=== PATIENT | female | born 1950 | race Caucasian/White ===

== ENCOUNTER 2021-03-02 09:35 | Outpatient (CLI) | payer MEDICARE, SELFPAY ==
--- NOTE | 2021-03-02 09:47 | XRR_ITS ---
PROCEDURE INFORMATION: Exam: XR Thoracic Spine Exam date and time: 03/02/2021 9:47 AM Age: 70 years old Clinical indication: Pain and injury or trauma; Blunt trauma (contusions or hematomas); Pain in thoracic spine; Injury details: Fall, and now has back pain; Prior surgery; Surgery type: Tumor removed; Additional info: Thoracic back pain TECHNIQUE: Imaging protocol: XR of the thoracic spine. Views: 3 views. COMPARISON: MRI Cervical Spine w/o* [id number] 06/25/2019 2:43 PM FINDINGS: Bones/joints: Alignment is normal. Impression.Mild compression fracture involving the anterior column of T7 and T6. Soft tissues: Unremarkable. XR/XR thoracic spine 2V [id number] IMPRESSION: .Mild compression fracture involving the anterior column of T7 and T6.
== END 2021-03-02 09:36 | disposition home or self-care (01) ==
PROVIDERS: Visit Provider Clinical Nurse Specialist Adult Health
DX: M54.6 Pain in thoracic spine (principal); S22.059A Unspecified fracture of T5-T6 vertebra, initial encounter for closed fracture; S22.069A Unspecified fracture of T7-T8 vertebra, initial encounter for closed fracture; X58.XXXA Exposure to other specified factors, initial encounter
CPT/HCPCS: 72070

== ENCOUNTER 2022-02-28 14:24 | Outpatient (CLI) | payer MEDICARE, SELFPAY ==
--- NOTE | 2022-02-28 15:05 | XR_ITS ---
WS: [id number] XR shoulder RT min 2V* [id number] REASON FOR EXAM: PAIN IN R SHOULDER FINDINGS: No fracture or focal bone lesion. Moderately severe narrowing of the acromioclavicular joint with subchondral sclerosis and marginal os teophytes. Glenohumeral joint is intact and relatively well-preserved. Mild subchondral sclerosis with small mar ginal osteophytes in the glenoid. XR/XR shoulder RT min 2V* [id number] IMPRESSION: Moderate osteoarthritis in the right joint with mild osteoarthritis in the farrukh ohumeral joint.
== END 2022-02-28 14:25 | disposition home or self-care (01) ==
PROVIDERS: PCP Clinical Nurse Specialist Adult Health; Visit Provider Clinical Nurse Specialist Adult Health
DX: M25.511 Pain in right shoulder (principal); M19.011 Primary osteoarthritis, right shoulder
CPT/HCPCS: 73030

== ENCOUNTER → 2022-03-30 08:47 | Outpatient (BNVA) | payer MEDICARE, SELFPAY | PROVIDERS: PCP Clinical Nurse Specialist Adult Health; Referring Provider Clinical Nurse Specialist Adult Health; Visit Provider Orthopaedic Surgery | DX: M47.812 Spondylosis without myelopathy or radiculopathy, cervical region (principal); M67.911 Unspecified disorder of synovium and tendon, right shoulder | CPT/HCPCS: 99204 ==

== ENCOUNTER 2022-11-02 12:45 | Outpatient (CLI) | payer MEDICARE, SELFPAY ==
--- NOTE | 2022-11-02 13:00 | XR_ITS ---
WS: [id number] SCREENING DEXA SCAN [employer] CLINICAL INFORMATION: osteoporosis COMPARISON: None. FINDINGS: The L1-L4 bone mineral density measures 0.796 g/cm2. This corresponds to a T score score of -3.2 and Z score of -1.1. Left femoral neck bone mineral density measures 0.685 g/cm2. This corresponds to a T score of -2.6 an d Z score of -0.8. Right femoral neck bone mineral density measures 0.671 g/cm2. This corresponds to a T score -2.7of an d Z score of -0.9. Mean femoral neck bone mineral density measures 0.678 g/cm2. This corresponds to a T score of -2.6 an d Z score of -0.8. XR/XR DEXA axial skeleton* [id number] IMPRESSION: Osteoporosis lumbar spine. Osteoporosis femoral necks. Patient's FRAX calculated 10 year probability for major osteoporotic fracture i s 27.8 % and osteoporotic hip fracture is 13.1%.
== END 2022-11-02 12:46 | disposition home or self-care (01) ==
LOC: RAD 12:51
PROVIDERS: PCP Clinical Nurse Specialist Adult Health; Visit Provider Clinical Nurse Specialist Adult Health
DX: M81.0 Age-related osteoporosis without current pathological fracture (principal)
CPT/HCPCS: 77080

== ENCOUNTER → 2022-11-04 08:59 | Outpatient (BNVA) | payer MEDICARE, SELFPAY | PROVIDERS: PCP Clinical Nurse Specialist Adult Health; Visit Provider Podiatrist Foot & Ankle Surgery | DX: M19.071 Primary osteoarthritis, right ankle and foot (principal) | CPT/HCPCS: 73610; 73630; 99203 ==

== ENCOUNTER → 2023-11-13 13:54 | Outpatient (BNVA) | payer MEDICARE, SELFPAY | PROVIDERS: PCP Clinical Nurse Specialist Adult Health; Visit Provider Clinical Nurse Specialist Adult Health | DX: M19.071 Primary osteoarthritis, right ankle and foot (principal); K21.9 Gastro-esophageal reflux disease without esophagitis; F41.1 Generalized anxiety disorder; M81.0 Age-related osteoporosis without current pathological fracture | CPT/HCPCS: 80053; 82306; 85025 ==

== ENCOUNTER → 2024-08-19 13:46 | Outpatient (BNVA) | payer MEDICARE, SELFPAY | DX: M81.0 Age-related osteoporosis without current pathological fracture (principal) | CPT/HCPCS: 80053; 82306 ==

== ENCOUNTER 2024-12-24 10:45 | Outpatient (CLI) | payer MEDICARE, SELFPAY ==
--- NOTE | 2024-12-24 11:00 | CT_ITS ---
WS: [id number] CT ABDOMEN WITHOUT CONTRAST HISTORY: cirrhosis Contiguous single phase 5 mm axial imaging performed to the abdomen. Oral contrast has not been provided. Coronal and sagittal reformats are submitted. All CT scans at [facility] use at least one of these dose optimization techniques: automated exposure control; mA and/or kV adjustment per patient size (includes targeted exams where dose is matched to clinical indication); or iterative reconstruction. IV CONTRAST: Omnipaque 350; 100 mL IV. Oral contrast: No DLP: 144.73 mGy.cm COMPARISON: None available. Lower thorax: 3.8 mm noncalcified nodule at the RIGHT lung base, subpleural. Heart is normal size. Small hiatal hernia. Liver/biliary system: Cirrhotic liver. Margins of the liver are markedly irregular. Gallbladder: Prior cholecystectomy. Pancreas: Normal size pancreas and pancreatic duct. No adjacent inflammation. Spleen: Spleen is top normal size at 12.4 cm. Adrenal glands: Normal. Right kidney: Normal. Left kidney: Normal. Aorta: Mild atherosclerosis with no aneurysm. Lymphadenopathy: None. Free fluid: Small amount of ascites surrounding the liver and spleen. Ascites extends into the lesser curvature of the stomach. Fluid extends along the paracolic gutters. GI tract: Small hiatal hernia. Distal esophageal varices. Gastric varices and splenic varices. Extensive postoperative surgical clips are noted within the mid and RIGHT abdomen. No GI tract obstruction. Only a small portion of the GI tract is included. Only the abdomen CT was requested. There is mild patulous dilatation of the ascending colon. Very minimal soft tissue thickening of the stomach antrum. Abdominal wall: Midline abdominal surgical site. Very subtle changes of omental thickening noted along the anterior peritoneal cavity. Visualized osseous structures: Unremarkable. CT/CT abdomen wo con [id number] IMPRESSION: 1. Small amount of ascites surrounding the liver and spleen and extending hay g the paracolic gutters. 2. Cirrhotic liver. 3. Prior cholecystectomy. 4. Numerous surgical clips within the abdomen. The exact type of surgery is no t been provided. May be GI tract. 5. Esophageal and gastric varices. 6. Very mild soft tissue and omental thickening along the peritoneal cavity se en in the lower abdomen. This may be early carcinomatosis or fat necrosis from prior surgery. 7. Pelvis was not included as only CT abdomen was requested without IV contras t. 8. Subpleural RIGHT lower lobe 3.8 mm noncalcified nodule. Recommend follow-up chest CT in 3 months. 9. Recommendation: Consider additional evaluation of the abdomen and pelvis wi th IV and oral contrast. The omental changes need to be evaluated for Pap the e tiology. Colonoscopy may also be of benefit. Upper endoscopy may be necessary a fter evaluation of the mild stomach antral thickening.
== END 2024-12-24 10:46 | disposition home or self-care (01) ==
PROVIDERS: PCP Family Medicine; Visit Provider Family Medicine
DX: K70.30 Alcoholic cirrhosis of liver without ascites (principal); R18.8 Other ascites; Z90.49 Acquired absence of other specified parts of digestive tract; I85.00 Esophageal varices without bleeding; I86.4 Gastric varices; R93.5 Abnormal findings on diagnostic imaging of other abdominal regions, including retroperitoneum; R91.1 Solitary pulmonary nodule; K44.9 Diaphragmatic hernia without obstruction or gangrene; R93.2 Abnormal findings on diagnostic imaging of liver and biliary tract; I70.0 Atherosclerosis of aorta; I86.8 Varicose veins of other specified sites; R93.89 Abnormal findings on diagnostic imaging of other specified body structures
CPT/HCPCS: 74150

== ENCOUNTER → 2025-01-06 11:48 | Outpatient (BNVA) | payer MEDICARE, SELFPAY | PROVIDERS: PCP Family Medicine; Visit Provider Family Medicine | DX: Z00.00 Encounter for general adult medical examination without abnormal findings (principal); I10 Essential (primary) hypertension; E55.9 Vitamin D deficiency, unspecified; Z13.6 Encounter for screening for cardiovascular disorders; Z11.59 Encounter for screening for other viral diseases | CPT/HCPCS: 80061; 86803 ==

== ENCOUNTER 2025-01-09 14:33 | Outpatient (CLI) | payer MEDICARE, SELFPAY ==
--- NOTE | 2025-01-09 15:00 | XR_ITS ---
WS: [id number] DEXA (DUAL ENERGY X-RAY ABSORPTIOMETRY) Bone mineral density was performed using a [employer] machine. HISTORY: osteoporosis COMPARISON: 11/02/2022 RIGHT forearm BMD: 0.600. T score: -3.2 Z score: -1.1 Total hip BMD: Left: 0.693 g/cm2. T score: -2.5 Z score: -0.6 Right: 0.694 g/cm2. T score: -2.5 Z score: -0.6 10 year probability of a major osteoporotic fracture is 28.8%. Compared to the prior study from 11/02/2022. Bilateral hips bone mineral density has increased by 2.2%. XR/XR DEXA axial skeleton* [id number] IMPRESSION: OSTEOPOROSIS based upon the WHO classification for females. Significant increase in bone mineral density within the hips since the prior .
== END 2025-01-09 14:34 | disposition home or self-care (01) ==
PROVIDERS: PCP Family Medicine; Visit Provider Family Medicine
DX: M81.0 Age-related osteoporosis without current pathological fracture (principal)
CPT/HCPCS: 77080

== ENCOUNTER → 2025-01-23 14:00 | Outpatient (BNVA) | payer MEDICARE, SELFPAY | PROVIDERS: PCP Family Medicine; Referring Provider Family Medicine; Visit Provider Student in an Organized Health Care Education/Training Program | DX: Z12.11 Encounter for screening for malignant neoplasm of colon (principal) | CPT/HCPCS: 99024; 99204 ==

== ENCOUNTER → 2025-02-05 10:44 | Outpatient (BNVA) | payer MEDICARE, SELFPAY | PROVIDERS: PCP Family Medicine; Visit Provider Nurse Practitioner Family | DX: L73.9 Follicular disorder, unspecified (principal); L57.8 Other skin changes due to chronic exposure to nonionizing radiation; L81.4 Other melanin hyperpigmentation; D22.4 Melanocytic nevi of scalp and neck | CPT/HCPCS: 99203 ==

== ENCOUNTER 2025-02-11 10:34 | Day surgery (SDC) | payer MEDICARE, SELFPAY ==
[2025-02-11 10:49] VITALS: BP 151/90; PULSE 89; RESP 18; TEMP 36.5; O2SAT 97; BMI 21.7
--- NOTE | 2025-02-11 10:53 | W.PM.OPSUD ---
Surgery/Procedure H&P Update DATE OF PROCEDURE: February 11, 2025 DATE H&P PERFORMED: 01/23/25 H&P UPDATE INFORMATION: I have reviewed H&P completed within last 30 days, I have examined patient prior to procedure and No changes to prior documentation PLANNED PROCEDURE: Operation Date: 02/11/25 11:45 Proposed Procedures p Colonoscopy 23098 G0121 Z12.11(Not Applicable) - Ilir Church MD
--- NOTE | 2025-02-11 11:00 | ANES.PREANE2 ---
Pre-Anesthetic Assessment Height/Weight: Height 1.55 m Weight 52.163 kg Temp Pulse Resp BP Pulse Ox O2 Del Method 97.7 F 89 18 151/90 97 Room Air 02/11/25 10:49 02/11/25 10:49 02/11/25 10:49 02/11/25 10:49 02/11/25 10:49 02/11/25 10:49 Operation Date: 02/11/25 11:45 Proposed Procedures p Colonoscopy 94196 G0121 Z12.11(Not Applicable) - Ilir Church MD Familial anesthetic complications: None Was Beta Darnell taken within 24 hours: N/A Was Clonidine taken within 24 hours: N/A Last intake: Intake Last Liquid Date 02/10/25 Last Liquid Time 23:00 Last Solid Date 02/09/25 Last Solid Time 23:00 Social Tobacco and No alcohol Hx etoh Exam alert, oriented x 3, clear to auscultation bilaterally and regular rate & rhythm Airway Mallampati: Class I CV/HEM Hypertension Hepatic etoh cirrhosis, one episode of ascites when first diagnosed. No further issues GI Gastroesophageal Reflux Disease Anesthetic Plan ASA status: 4 Anesthesia: MAC Risk of > 500 ml blood loss (7ml/kg in children): No Medications/Allergies Home Medications ?Medication ?Instructions ?Recorded ?Confirmed ?Last Taken ?Type ascorbic acid (vitamin C) 1,000 mg 1,000 mg PO DAILY 10/07/19 02/10/25 02/06/25 History tablet calcium carbonate (Calcium 500) 1,000 mg PO DAILY 10/28/22 02/10/25 02/06/25 History cholecalciferol (vitamin D3) 100 4,000 unit PO DAILY 11/14/23 02/10/25 02/06/25 History mcg (4,000 unit) capsule alprazolam 0.25 mg tablet 0.25 mg PO DAILY PRN anxiety 90 11/28/24 02/10/25 1 Week Ago Rx days #30 tabs ~01/30/25 magnesium 500 mg tablet 500 mg PO DAILY 02/06/25 02/10/25 02/06/25 History potassium 99 mg tablet 99 mg PO DAILY 02/06/25 02/10/25 02/06/25 History amlodipine 2.5 mg tablet 2.5 mg PO DAILY #90 tabs 02/10/25 02/10/25 Unknown Rx baclofen 10 mg tablet 10 mg PO BID PRN muscle spasm #60 02/10/25 02/10/25 Unknown Rx tabs bupropion HCl 150 mg 24 hr tablet, 150 mg PO QAM #90 tabs 02/10/25 02/10/25 Unknown Rx extended release (Wellbutrin XL) spironolactone 25 mg tablet 25 mg PO BID #180 tabs 02/10/25 02/10/25 Unknown Rx Allergies Allergy/AdvReac Type Severity Reaction Status Date / Time Sulfa (Sulfonamide Allergy ALGY-Rash Verified 02/10/25 13:55 Antibiotics) [facility] Anesthesia Medical History Major depressive disorder, recurrent, moderate fluoxetine quit working; on wellbutrin and it is helping Rash of face L lower chin--several years; Screening for colorectal cancer Lung nodule seen on imaging study RLL subpleural, seen on CT abd 4..25--order CT chest 3 months Nicotine dependence, cigarettes, uncomplicated Osteoporosis DEXA 3..; on alendronate for 17 yrs; stopping 4.25 Alcoholism in remission Cirrhosis, alcoholic Psoriasis Vitamin D deficiency Hypertension Bilateral carpal tunnel syndrome GERD (gastroesophageal reflux disease) Generalized anxiety disorder Cervical disc disorder with myelopathy of mid-cervical region Stenosis of cervical spine with myelopathy Cervical osteoarthritis Spondylolisthesis of cervical region Cervical spondylosis reports PT in past Cervical disc disease Surgical History 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
[2025-02-11] MEDS: sodium chloride 0.9% 1,000 ML 15 ML IV (11:01)
[2025-02-11 11:34] VITALS: BP 125/63; PULSE 72; RESP 18; TEMP 36.5; O2SAT 97
[2025-02-11 11:43] VITALS: BP 127/65; PULSE 69; RESP 18; TEMP 36.2; O2SAT 96
--- NOTE | 2025-02-11 12:10 | ANE.PACU2 ---
Inpatient post-anesthesia follow up: Airway intact: Yes Vital signs: Temperature 97.2 F Pulse Rate 69 Respiratory Rate 18 Blood Pressure 127/65 Pulse Oximetry 96 Oxygen Delivery Me thod Room Air Oxygen Flow Rate Fraction of Inspir ed Oxygen Hydration adequate: Yes Nausea and vomiting: No Pain level: 1 Mental status: Baseline
== END 2025-02-11 12:11 | disposition home or self-care (01) ==
PROVIDERS: PCP Family Medicine; Visit Provider Student in an Organized Health Care Education/Training Program
PROC: 0DJD8ZZ Inspection of Lower Intestinal Tract, Via Natural or Artificial Opening Endoscopic (ICD-10-PCS; CPT 45378; principal; 2025-02-11 11:45)
DX: Z12.11 Encounter for screening for malignant neoplasm of colon (principal); D12.0 Benign neoplasm of cecum; K63.3 Ulcer of intestine; I10 Essential (primary) hypertension; K21.9 Gastro-esophageal reflux disease without esophagitis; Z79.899 Other long term (current) drug therapy; Z90.49 Acquired absence of other specified parts of digestive tract; Z87.891 Personal history of nicotine dependence
CPT/HCPCS: 45380; 88305; J2704; J7030

== ENCOUNTER → 2025-02-24 13:15 | Outpatient (BNVA) | payer MEDICARE, SELFPAY | PROVIDERS: PCP Family Medicine; Visit Provider Student in an Organized Health Care Education/Training Program | DX: Z09 Encounter for follow-up examination after completed treatment for conditions other than malignant neoplasm (principal) | CPT/HCPCS: 99213 ==

== ENCOUNTER 2025-03-06 15:03 | Outpatient (CLI) | payer MEDICARE, SELFPAY ==
--- NOTE | 2025-03-06 15:15 | CT_ITS ---
WS: [id number] CT CHEST TECHNIQUE: Noncontrast CT of the chest with coronal and sagittal reformatted images. CLINICAL INFORMATION: f/u RLL lung nodule seen on CT abd 12/27 COMPARISON: CT abdomen 12/24/2024 DLP: 199.[address] scans at [facility] use at least one of these dose optimization techniques: automated exposure control; mA and/or kV adjustment per patient size (includes targeted exams where dose is matched to clinical indication); or iterative reconstruction. FINDINGS: Previously described subpleural RIGHT lower lobe nodule measuring 4 mm is unchanged. Recommend 6-month follow-up. No other suspicious pulmonary parenchymal abnormalities. Aortic calcification. Coronary calcification. Few small thyroid nodules. No mediastinal or hilar lymphadenopathy. Chronic appearing compression with anterior wedging in the midthoracic spine. Bilateral breast implants. Cirrhotic liver. Prior cholecystectomy. Partially visualized upper abdominal varices and ascites is similar to previous. CT/CT chest wo con [id number] IMPRESSION: Previously described subpleural RIGHT lower lobe nodule measuring 4 mm is un changed. Recommend 6-month follow-up.
== END 2025-03-06 15:04 | disposition home or self-care (01) ==
PROVIDERS: PCP Family Medicine; Visit Provider Family Medicine
DX: R91.1 Solitary pulmonary nodule (principal)
CPT/HCPCS: 71250

== ENCOUNTER → 2025-08-12 13:44 | Outpatient (BNVA) | payer MEDICARE, SELFPAY | PROVIDERS: PCP Family Medicine; Visit Provider Family Medicine | DX: K70.30 Alcoholic cirrhosis of liver without ascites (principal); I10 Essential (primary) hypertension; F33.1 Major depressive disorder, recurrent, moderate; F10.21 Alcohol dependence, in remission | CPT/HCPCS: 80053; 82607; 84439; 84443; 85025 ==